=== PATIENT | female | born 1990 | race Two or more races ===

== ENCOUNTER 2024-04-06 03:29 | Emergency (ER) | payer OTHER ==
[~2024-04-06] VITALS: Ht 167.6 cm; Wt 77.1 kg
[2024-04-06 08:40] LABS: HEMATOCRIT 36.3 % (36.0-45.00); HEMOGLOBIN 12.3 g/dL (12.0-15.00); MEAN CELL VOLUME 89.1 fL (80.00-100.00); MEAN CORPUSCULAR HEMOGLOBIN 30.2 pg (27.00-32.0); MEAN CORPUSCULAR HGB CONC 33.9 g/dl (32.0-36.0); PLATELET COUNT 248 K/uL (150-450); RED BLOOD COUNT 4.07 M/uL (4.00-6.00); RED CELL DISTRIBUTION WIDTH 12.8 % (11.5-14.5)
[2024-04-06] MEDS ORDERED: CEFTRIAXONE SODIUM 1,000 MG VIAL IM STA (09:10)
[2024-04-06] MEDS ORDERED: KETOROLAC TROMETHAMINE 30 MG VIAL IM STA (09:10)
[2024-04-06] MEDS ORDERED: KETOROLAC TROMETHAMINE 30 MG VIAL ONE (09:18)
[2024-04-06] MEDS ORDERED: CEFTRIAXONE SODIUM 1,000 MG VIAL ONE (09:18)
== END 2024-04-06 09:28 | disposition home or self-care (01) ==
LOC: ER 03:30
DX: J03.90 Acute tonsillitis, unspecified (principal); Z20.822 Contact with and (suspected) exposure to COVID-19